=== PATIENT | female | born 1960 ===

== ENCOUNTER 2022-12-01 16:43 | Observation (INO) | payer BC ==
--- OUTSIDE RECORDS SUMMARY | 2022-12-01 16:47 | XMS REPORT | Continuity of Care Document ---
:1960 Author Organization [facility] t Address [address] [place] [address] [place] [id number] Care Team Providers Name Role Phone Sharpless Primary Care Physician Jen Moncada Attending Clinician Unavailable Natalya Mcdowell Attending Clinician Unavailable EZIO JAMES Attending Clinician Unavailable Suleman Cordoba Attending Clinician Unavailable Shefali Lopez Attending Clinician Unavailable Referred, Self Attending Clinician Unavailable Jen Moncada Attending Clinician Enmanuel Garcia Attending Clinician LUCIO AMOR Attending Clinician Unavailable Nithya Jurado Admitting Clinician Unavailable Natalya Mcdowell Admitting Clinician Unavailable Physician, No Primary or Family Admitting Clinician UnavailLUCIO Christianson Admitting Clinician Unavailable Payers Payer Name Policy Type Policy Number Effective Date Expiration Date S ource Problems Condition Condition Condition Status Onset Resolution Last Treating Co mments Source Name Details Category Date Date Treatment Clinician Date RIGHT FOOT RIGHT Diagnosis Active 2019-03-23 [facility] FOOT 7-24 09:09:00 l Active 08:00: Fred 08/31/2018 00 SMR [facility] Abnormal Abnormal Disease Active Overview: Ar thodi stress stress 3-[address] test test 00:00: g of this Hospita 00 note l might be different from the original. 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 00:00: Hospita 00 l Malignant Malignant Problem Resolve 2019-04-20 Memoria tumor of tumor of d 23:30:12 l breast breast [place] (disorder) (disorder) Resolved Problem 04/20/2019 [facility] Allergies, Adverse Reactions, Alerts Allergy Allergy Status Severity Reaction(s) Onset Inactive Treating Comm ents Source Name Type Date Date Clinician No Known DA Active U 2020- [facility]- [facility] [place] No Known DA Active U 2020-0 [facility] All[facility]ie 6 [place] [facility] 00:[facility]: [facility]ope 00 dic Hospita l No Known DA Active U 2020-0 [facility] Allergie 6- [place] 00:[facility]ope 00 dic [facility]ospita l No Known DA Active U 2020-0 [facility] Allergie 6- [place] 00:[facility] Orthope 00 dic Hospita l No Known DA Active U 2018-0 [facility] Allergie 7-17 Clear s 00:00: Hyatt 00 [facility] No Known DA Active U 2018-0 [facility] Allergie 7-17 Clear s 00:00: Hyatt 00 [facility] No Known DA Active U 2018-0 [facility] Allergie 7-16 [place] 00:[facility]ope 00 dic Hospita l No Known DA Active U 2015-02 [facility] Allergie 0-07 [place] 00:00: Orthope 00 dic Hospita l No Known No Known Active Memori a Medicati Medicati l on on Fred Allergie Allergie s s Family History Family Member Diagnosis Comments Start Date Stop Date Source Natural brother Heart disease [facility] Natural father Heart disease [facility] Natural mother Heart disease [facility] sister Diabetes [facility] Social History Social Habit Start Date Stop Date Quantity Comments Source Gender identity [facility] Sexual orientation [facility] History of Social 2018-09-25 2018-09-[address] [facility] [address] function 00:00:00 00:00:00 [facility] Social History 2017-05-31 2017-05-31 [facility] corieann 20:49:15 20:49:15 Alcohol intake 2016-10-23 2016-10-23 [facility] Tobacco use and 2016-09-16 2016-09-[address] [facility] [address] [facility] kes exposure 00:00:00 00:00:00 tobacco non-user [facility] Alcohol Comment 2015-11-04 2015-11-04 2 a week Religious 00:00:00 00:00:00 [facility] Sex Ass[birth year] At [birth year] CHRISTOPHER Hernandez kes 00:00:00 [facility]:00:00 [facility] Smoking Status Start Date Stop Date Source Never smoked tobacco [facility] ospital Medications Ordered Filled Start Stop Current Ordering Indication Dosage Frequency Signature Comments Components Source Medication Medication Date Date Medication? Clinician (SIG) Name Name cholecalcif 2017-02 Yes Take by Met yamilex brown, 1-[address] vitamin D3, 11:05: Hospit a (VITAMIN D3 23 l ORAL) cyanocobala 2017-02 Yes 1000ug Inject Me thodi min 1,000 1-20 1,[address] mcg/mL 11:05: into the Hospita injection 23 shoulder, l thigh, or buttocks once. cholecalcif 2017-02 Yes Take by Met yamilex brown, 1-[address] vitamin D3, 11:05: Hospit a (VITAMIN D3 23 l ORAL) cyanocobala 2017-02 Yes 1000ug Inject Me thodi min 1,000 1-20 1,[address] mcg/mL 11:05: into the Hospita injection 23 shoulder, l thigh, or buttocks once. cholecalcif 2017-02 Yes Take by Met yamilex stephanie, 1-[address] vitamin D3, 11:05: Hospit a (VITAMIN D3 23 l ORAL) cyanocobala 2017-02 Yes 1000ug Inject Me thodi min 1,000 1-20 1,[address] mcg/mL 11:05: into the Hospita injection 23 shoulder, l thigh, or buttocks once. levothyroxi 2017-02 Yes 125ug QD Take 125 M ethodi ne 1-[address] (SYNTHROID, 11:02: mouth Hospi ta LEVOXYL) 28 every l 125 mcg morning. tablet pravastatin 2017-02 Yes 40mg QD Take 40 mg Methodi (PRAVACHOL) 1-[address] 40 MG 11:02: daily. Hospita tablet 28 l levothyroxi 2017-02 Yes 125ug QD Take 125 M ethodi ne 1-[address] (SYNTHROID, 11:02: mouth Hospi ta LEVOXYL) 28 every l 125 mcg morning. tablet pravastatin 2017-02 Yes 40mg QD Take 40 mg Methodi (PRAVACHOL) 1-[address] 40 MG 11:02: daily. Hospita tablet 28 l levothyroxi 2017-02 Yes 125ug QD Take 125 M ethodi ne 1-[address] (SYNTHROID, 11:02: mouth Hospi ta LEVOXYL) 28 every l 125 mcg morning. tablet pravastatin 2017-02 Yes 40mg QD Take 40 mg Methodi (PRAVACHOL) 1-[address] 40 MG 11:02: daily. Hospita tablet 28 l Vitamin D3 Yes 5,000 Memori a 5000 intl 4-23 IntlUnit = l units oral 20:49: 1 cap, PO, H ermann capsule 00 Daily, # 30 cap, 1 Refill(s) pravastatin Yes 40 mg = 1 M emoria 40 mg oral 4-23 tab, PO, l tablet 20:49: Daily, 0 [place] 00 Refill(s) sucralfate Yes 1 gm = 1 Mem oria 1 g oral 4-23 tab, PO, l tablet 20:49: QID-Before Kym nn 00 Meals, 0 Refill(s) levothyroxi Yes 125 Memori a ne 125 mcg 4-23 microgram l (0.125 mg) 20:49: = 1 tab, Her braxton oral tablet 00 PO, Daily, 0 Refill(s) predniSONE Yes 10 mg = 1 Me moria 10 mg oral 4-23 tab, PO, l tablet 20:49: Daily, 0 Fred 00 Refill(s) omeprazole Yes 40 mg = 1 Me moria 40 mg oral 4-23 cap, PO, l delayed 20:49: Daily, 0 Ole n release 00 Refill(s) capsule Ibuprofen Yes 400 mg = 1 Me moria 400 MG Oral 4-23 tab, PO, l Tablet 20:49: Q6H, 0 [place] Refill(s) Vitamin Yes 1 tab, PO, Joseph yves B-100 4-23 Daily, 0 l 20:49: Refill(s) Fred 00 levothyroxi Yes 125 Memori a ne 125 mcg 4-23 microgram l (0.125 mg) 20:49: = 1 tab, Her braxton oral tablet 00 PO, Daily, 0 Refill(s) predniSONE Yes 10 mg = 1 Me moria 10 mg oral 4-23 tab, PO, l tablet 20:49: Daily, 0 [place] Refill(s) omeprazole Yes 40 mg = 1 Me moria 40 mg oral 4-23 cap, PO, l delayed 20:49: Daily, 0 Ole n release 00 Refill(s) capsule Ibuprofen Yes 400 mg = 1 Me moria 400 MG Oral 4-23 tab, PO, l Tablet 20:49: Q6H, 0 [place] 00 Refill(s) Vitamin 0 Yes 1 tab, PO, Joseph yves B-100 4-23 Daily, 0 l 20:49: Refill(s) Vitamin D3 Yes 5,000 Memori a 5000 intl 4-23 IntlUnit = l units oral 20:49: 1 cap, PO, H ermann capsule 00 Daily, # 30 cap, 1 Refill(s) pravastatin Yes 40 mg = 1 M emoria 40 mg oral 4-23 tab, PO, l tablet 20:49: Daily, 0 Fred Refill(s) sucralfate Yes 1 gm = 1 Mem oria 1 g oral 4-23 tab, PO, l tablet 20:49: QID-Before Kym nn 00 Meals, 0 Refill(s) levothyroxi Yes 125ug Take [address] ne 9-14 [facility] (SYNTHROID, 18:33: mouth Medic al LEVOTHROID) 02 Every Center 125 MCG morning on tablet an empty stomach. levothyroxi 2017-0 Yes 125ug Take [address] ne 9-14 [facility] (SYNTHROID, 18:33: mouth Medic al LEVOTHROID) 02 Every Center 125 MCG morning on tablet an empty stomach. levothyroxi 2017-0 Yes 125ug Take [address] ne 9-14 [facility] (SYNTHROID, 18:33: mouth Medic al LEVOTHROID) 02 Every Center 125 MCG morning on tablet an empty stomach. Vital Signs Vital Name Observation Time Observation Value Comments Source Height 2017-05-31 20:41:00 [facility] BMI Calculated 2017-05-31 20:41:00 Ru[facility] Landis Weight 2017-05-31 20:41:00 [facility] Heart Rate 2017-05-31 20:41:00 [facility] Systolic (mm Hg) 2017-05-31 20:41:00 Josephruben Ibarra Diastolic (mm Hg) 2017-05-31 20:41:00 [facility] lynne Ibarra Procedures Procedure Date / Time Performed Performing Clinician [facility] e Measurement of 2017-05-31 18:13:00 Daphnie braxton post-voiding residual urine and/or bladder capacity by ultrasound, non-imaging Mastectomy [facility] Plan of Care Planned Activity Planned Date Details Comments Source Future Scheduled 2022-11-25 [facility] Test 20:24:09 malignant neoplasm of colon (procedure) [code = 102713049] Future Scheduled 2022-11-25 [facility] Test 20:24:09 malignant neoplasm of colon (procedure) [code = 964622121] Future Scheduled 2022-11-25 [facility] Test 20:24:09 malignant neoplasm of colon (procedure) [code = 650859852] Future Scheduled 2022-11-25 COVID-19 VACCINE (#1) [facility] Hospital Test 20:24:09 [code = COVID-19 VACCINE (#1)] Future Scheduled 2022-11-25 [facility] Test 20:24:09 malignant neoplasm of cervix (procedure) [code = 939049671] Future Scheduled 2022-11-25 [facility] Test 20:24:09 malignant neoplasm of colon (procedure) [code = 651330784] Future Scheduled 2022-11-25 Screening for [facility] Test 20:24:09 malignant neoplasm of colon (procedure) [code = 311064881] Future Scheduled 2022-11-25 SHINGLES VACCINES (1 [facility] Test 20:24:09 of 2) [code = SHINGLES VACCINES (1 of 2)] Future Scheduled 2022-11-25 BREAST CANCER [facility] Test 20:24:09 SCREENING [code = BREAST CANCER SCREENING] Future Scheduled 2022-11-25 RSV VACCINES > 60 YR [facility] Test 20:24:09 (1 - 1-dose 60+ series) [code = RSV VACCINES > 60 YR (1 - 1-dose 60+ series)] Future Scheduled 2022-11-25 INFLUENZA VACCINE [facility] Test 20:24:09 (#1) [code = INFLUENZA VACCINE (#1)] Future Scheduled 2022-07-08 COVID-19 VACCINE (#1) [facility] Test 14:54:12 [code = COVID-19 VACCINE (#1)] Future Scheduled 2022-07-08 Screening for [facility] Test 14:54:12 malignant neoplasm of cervix (procedure) [code = 665892551] Future Scheduled 2022-07-08 COLONOSCOPY SCREENING [facility] Test 14:54:12 [code = COLONOSCOPY SCREENING] Future Scheduled 2022-07-08 SHINGLES VACCINES (1 [facility] Test 14:54:12 of 2) [code = SHINGLES VACCINES (1 of 2)] Future Scheduled 2022-07-08 BREAST CANCER [facility] Test 14:54:12 SCREENING [code = BREAST CANCER SCREENING] Future Scheduled 2022-07-08 INFLUENZA VACCINE [facility] Test 14:54:12 [code = INFLUENZA VACCINE] Future Scheduled 2021-10-08 HEPATITIS B VACCINES [facility] Test 00:25:25 (1 of 3 - 3-dose series) [code = HEPATITIS B VACCINES (1 of 3 - 3-dose series)] Future Scheduled 2021-10-08 COVID-19 VACCINE (#1) [facility] Test 00:25:25 [code = COVID-19 VACCINE (#1)] Future Scheduled 2021-10-08 Screening for [facility] Test 00:25:25 malignant neoplasm of cervix (procedure) [code = 478136295] Future Scheduled 2021-10-08 COLONOSCOPY SCREENING [facility] Test 00:25:25 [code = COLONOSCOPY SCREENING] Future Scheduled 2021-10-08 SHINGLES VACCINES (1 [facility] Test 00:25:25 of 2) [code = SHINGLES VACCINES (1 of 2)] Future Scheduled 2021-10-08 BREAST CANCER [facility] Test 00:25:25 SCREENING [code = BREAST CANCER SCREENING] Future Scheduled 2021-10-08 INFLUENZA VACCINE Method [facility] Test 00:25:25 [code = INFLUENZA VACCINE] Encounters Start End Encounter Admission Attending Care Care Encounter Source Date/Time Date/Time Type Type Clinicians Facility Department ID 2019-08-25 Inpatient MAHSA Fukelmo, [facility] 11:37:00 Jen [id number] [place] [facility] 2022-07-07 2022-07-07 Outpatient MAHSA Mcdowell [facility] [id number] [facility] 12:00:00 12:00:00 Natalya 71 [facility] 2021-10-23 2021-10-23 Outpatient JACOB MHSE MHSE [id number] MH 06:30:00 12:25:00 [facility] 2021-06-30 2021-06-30 Outpatient MAHSA Mcdowell [facility] [id number] [facility] 12:00:00 12:00:00 Natalya 48 [facility] 2020-07-30 2020-07-30 Outpatient EL Adalid, [facility] PAIN - [facility] 10:03:00 10:03:00 Suleman [id number] [place] [facility] 2020-07-12 2020-07-12 Outpatient EL Adalid, [facility] PAIN [id number] [facility] 07:03:00 07:03:00 Suleman [id number] [place] [facility] 2020-07-01 2020-07-01 Outpatient Halamicek, [facility] RADI [address]- [facility] 16:45:00 16:45:00 Shefali [address] [place] [facility] 2020-06-19 2020-06-19 Outpatient MAHSA Mcdowell [facility] [id number] [facility] 23:41:59 23:41:59 Natalya 26 [facility] [place] 2019-08-22 2019-08-22 Outpatient Antwan, [facility] [id number] [facility] 18:24:00 18:24:00 Tomiko 30 [facility] 2019-08-15 2019-08-15 Outpatient MAHSA Mcdowell, [facility] [id number] [facility] 12:00:00 12:00:00 Natalya 86 [facility] [place] 2019-06-16 2019-06-16 Outpatient EL Vilma, [facility] [id number] [facility] 12:00:00 12:00:00 Self 72 [facility] [place] 2019-03-20 2019-04-19 OP Therapy nullFlavo SMR Aaron [id number] [facility] 17:00:00 04:59:00 [facility] 00 l [place] 2019-03-20 2019-04-19 OP Therapy nullFlavo SMR Aaron [id number] [facility] 17:00:00 04:59:00 [facility] 00 l [place] 2019-03-20 2019-04-18 Outpatient Antwan, [id number] 11:00:00 23:59:00 Tomiko [id number] 2017-05-31 2017-06-01 [place] [id number] [facility] 20:45:00 04:59:59 r [facility] [place] 2017-05-31 2017-06-01 [place] [id number] [facility] 20:45:00 04:59:59 r [facility] 00 [place] 2017-05-31 2017-05-31 Outpatient Enmanuel Garcia MG [id number] 15:45:00 23:59:59 Denys 00 2017-05-31 2017-05-31 Outpatient MHIE MHIE [id number] [facility] 15:45:00 15:45:00 00 l Fred Results Test Description Test Time Test Comments Results Result [facility] e Comments - XR FLUORO FOR 2020-07-30 SPINE INJ 13:19:[address] [facility] : 1960 Sex: F Patient Name: HANNAH OLIVAREZ Unit No: [id number] EXAMS: CPT CODE: [id number] XR FLUORO FOR SPINE INJ 87263 LUMBAR FACET INJECTION DIAGNOSTIC REFERRAL PHYSICIAN: None PREOPERATIVE DIAGNOSIS: Lumbar spondylosis without myelopathy or radiculopathy POSTOPERATIVE DIAGNOSIS: Lumbar spondylosis without myelopathy or radiculopathy PROCEDURE PERFORMED: Fluoroscopically guided needle localization of the bilateral L4/5 and right L5/S1 facets with arthrograms and diagnostic injection of local anesthetic and steroid. FINDINGS: All 3 joints are arthritic especially so at right L5/S1 Preinjection VAS 8/10. Postinjection VAS 0/10. Steroid response pending follow-up. ESTIMATED BLOOD LOSS: Minimal ANESTHESIA: TIVA COMPLICATIONS: None DETAILS OF PROCEDURE: After obtaining stable vital signs, informed consent and IV access patient was taken to the fluoroscopy suite where the patient was placed in a prone position with all extremities padded and appropriate monitors placed. The patient was sterilely prepped prepped and draped over the lumbosacral spine. Using fluoroscopic visualization, the insertion sites were marked for a paravertebral approach to each joint. Using standard technique, a 22 -gauge needle was inserted into each joint capsule without paresthesias. At all levels, aspiration was negative for clear serous fluid. Isovue-300 contrast 0.2 mL was injected to produce each arthrogram. There were no signs of intravascular or intrathecal uptake. Bupivicaine 0.75% 0.08 mL with Lidocaine 4% 0.25 ml and triamcinolone 26.7 mg was then injected incrementally into each joint. There were no signs of intravascular or intrathecal uptake. The patient's vital signs remained stable. All needles were removed and the patient was taken to the PACU in good condition. Image: Image 1 Image: Image 2 Image: Image 3 Image: Image 4 at 1319 Reported and signed by: SULEMAN CORDOBA MD [facility] NAME: HANNAH OLIVAREZ [address] [facility] PHYS: Suleman Rodriguez [place], [place] [address] : 1960 AGE: 60 SEX: F LOC: WILVER PHONE #: [phone] EXAM DATE: 07/30/2020 STATUS: REG SDC FAX #: [phone] RAD #: D/C DT PAGE 1 Signed Report (CONTINUED) Patient Name: HANNAH OLIVAREZ Unit No: [id number] EXAMS: CPT CODE: [id number] XR FLUORO FOR SPINE INJ 37261 (Continued) CC: Suleman Cordoba MD; Nithya Jurado MD Technologist: ALEXSANDRA KWONG RT(R) Transcribed D/ (1319) [id number] [facility] NAME: HANNAH OLIVAREZ [address] [facility] PHYS: Suleman Rodriguez [place], [place] [address] : 1960 AGE: 60 SEX: F LOC: [facility] PHONE #: [phone] EXAM DATE: 07/30/2020 STATUS: REG [facility] FAX #: [phone] RAD #: D/C DT PAGE 2 Signed Report Patient Name: HANNAH OLIVAREZ Unit No: [id number] EXAMS: CPT CODE: [id number] XR FLUORO FOR SPINE INJ 41751 (Continued) Orig Print D/T: S: 07/30/2020 (1322) [facility] NAME: HANNAH OLIVAREZ [address] [facility] PHYS: Suleman Rodriguez [place], [place] [address] : 1960 AGE: 60 SEX: F LOC: [facility] PHONE #: [phone] EXAM DATE: 07/30/2020 STATUS: REG [facility] FAX #: [phone] RAD #: D/C DT PAGE 3 Signed Report - XR FLUORO FOR 2020-07-12 SPINE INJ 10:22:00 [facility] 1960 Sex: F Patient Name: HANNAH OLIVAREZ Unit No: [id number] EXAMS: CPT CODE: [id number] XR FLUORO FOR SPINE INJ 96521 CERVICAL FACET DIAGNOSTIC INJECTION REFERRAL PHYSICIAN: Dr. Dempsey Preoperative diagnosis: Cervical spondylosis without myelopathy or radiculopathy Postoperative diagnosis: Cervical spondylosis without myelopathy or radiculopathy Procedure performed: Fluoroscopically guided needle localization of the bilateral C3/4 and bilateral C5/6 facets with arthrograms and diagnostic injection of local anesthetic and steroid. Findings:Good flow of dye into all 4 facet joints. The right C3-4 facet was reasonably solid but the other 3 facet joint capsules did leak. Lupx-wh-efcisdui degenerative changes seen at all 4 levels. Preinjection VAS 8/10. Postinjection VAS 5/10 (she was feeling a soreness at the needle entry site. She was unable to tell if her original pain was significantly different however she did notice her range of motion was drastically improved).. Steroid response pending follow-up. Estimated blood loss: Minimal Anesthesia: TIVA Complications: None Details of procedure: After obtaining stable vital signs, informed consent and IV access, with no contraindications to proceeding, the patient was taken to the operating room and placed in a prone position with all extremities padded and appropriate monitors placed. The patient was sterilely prepped and draped over the cervical spine. Using fluoroscopic visualization the insertion sites were marked for a posterior paravertebral approaches and using standard technique, a 22-gauge needle was inserted into each joint capsule without paresthesias. Aspiration was negative. Isovue-300 contrast 0.2 mL was injected to produce each arthrogram. There were no signs of intravascular or intrathecal uptake. Bupivacaine 0.75% 0.06 mL with lidocaine 4% 0.187 mL and dexamethasone 5 mg was then injected incrementally with frequent negative aspirations at each joint. There were no signs of intravascular or intrathecal uptake. The patient's vital signs remained stable. All needles were removed and the patient was taken to the PACU in good condition. Image: Image 1 Image: Image 2 Image: Image 3 Image: Image 4 [facility] NAME: HANNAH OLIVAREZ [address] [facility] PHYS: Suleman Rodriguez [place], [place] [address] : 1960 AGE: 60 SEX: F LOC: LiSAHLEY PHONE #: [phone] EXAM DATE: 07/12/2020 STATUS: REG SD FAX #: [phone] RAD #: D/C DT PAGE 1 Signed Report (CONTINUED) Patient Name: HANNAH OLIVAREZ Unit No: [id number] EXAMS: CPT CODE: [id number] XR FLUORO FOR SPINE INJ 75295 (Continued) at 1022 Reported and signed by: SULEMAN CORDOBA MD CC: Suleman Cordoba MD; Nithya Jurado MD; Sonido Dempsey MD Technologist: ALEXSANDRA KWONG RT(R) Transcribed D/ (1022) [email or web address] [facility] NAME: HANNAH OLIVAREZ [address] [facility] PHYS: Suleman Rodriguez [place], [place] [address] : 1960 AGE: 60 SEX: F LOC: LiASHLEY PHONE #: [phone] EXAM DATE: 07/12/2020 STATUS: REG [facility] FAX #: [phone] RAD #: D/C DT PAGE 2 Signed Report Patient Name: HANNAH OLIVAREZ Unit No: [id number] EXAMS: CPT CODE: [id number] XR FLUORO FOR SPINE INJ 06290 (Continued) Orig Print D/T: S: 07/12/2020 (1025) [facility] NAME: HANNAH OLIVAREZ [address] [facility] PHYS: Suleman Rodriguez [place], [place] [address] : 1960 AGE: 60 SEX: F LOC: [facility] PHONE #: [phone] EXAM DATE: 07/12/2020 STATUS: REG SDC FAX #: [phone] RAD #: D/C DT PAGE 3 Signed Report - MRI T-SPINE W/O 2020-07-02 CONT 08:04:00 [facility] : 1960 Sex: F Patient Name: HANNAH OLIVAREZ Unit No: [id number] EXAMS: CPT CODE: [id number] MRI T-SPINE W/O CONT 96186 DIAGNOSIS: 1. At T1-2 there is no evidence for disc bulge or herniation, bony canal or foraminal stenosis. 2. At T2-3 there is no evidence for disc bulge or herniation, bony canal or foraminal stenosis. 3. At T3-4 there is an old less than 25% superior compression of T4. There is no evidence for disc bulge or herniation, bony canal or foraminal stenosis. 4. At T4-5 there is an old less than 25% central endplate compression of T5. There is no evidence for disc bulge or herniation, bony canal or foraminal stenosis. 5. At T5-6 there is 3 mm central disc protrusion touching the cord. No canal or foraminal narrowing. 6. At T6-7 there is no evidence for disc bulge or herniation, bony canal or foraminal stenosis. 7. At T7-8 there is slight disc bulging with annular fissuring. No canal or foraminal narrowing is seen. 8. At T8-9 there is 2 mm of posterior central disc bulging without canal or foraminal narrowing 9. At T9-10 there is no evidence for disc bulge or herniation, bony canal or foraminal stenosis. Bilateral facet degeneration is present. 10. At T10-11 there is 25-50% superior endplate compression of T11 which appears old. Slight bony retropulsion and disc bulging is noted. There is mild narrowing of the central canal without cord impingement. Facet degeneration is present. No foraminal narrowing is seen. 11. At T11-12 there is no evidence for disc bulge or herniation. There is mild narrowing of the canal with facet degeneration. No foraminal narrowing is seen. 12. At T12-L1 there is no evidence for disc bulge or herniation. There is slight narrowing of the central canal due to facet and ligamentum flavum hypertrophic and degenerative change without foraminal narrowing COMMENT: COMPARISON: No prior exams available. Scans were performed in the sagittal and axial planes utilizing T1, T2 and inversion recovery images. Endplate and disc degeneration is seen from T4 to T6 and T10-11. The cord appears normal in size and signal conus is in the expected location. at 0804 Reported and signed by: Morgan Love MD CC: Nithya Jurado MD; Sonido Dempsey MD Technologist: ANA LUISA SOLORZANO MRI Transcribed D/ (0804) [facility]rey [facility] NAME: HANNAH OLIVAREZ [address] [facility] PHYS: Sonido Walters MD : 1960 AGE: 60 SEX: F [place], [place] [address] LOC: Y.MRI PHONE #: [phone] EXAM DATE: 07/01/2020 STATUS: DEP CLI FAX #: [phone] RAD #: D/C DT PAGE 1 Signed Report Patient Name: HANNAH OLIVAREZ Unit No: [id number] EXAMS: CPT CODE: [id number] MRI T-SPINE W/O CONT 40862 (Continued) Orig Print D/T: S: 07/02/2020 (0807) [facility] NAME: HANNAH OLIVAREZ [address] [facility] PHYS: Sonido Walters MD : 1960 AGE: 60 SEX: F [place], [place] [address] LOC: Y.MRI PHONE #: [phone] EXAM DATE: 07/01/2020 STATUS: DEP CLI FAX #: [phone] RAD #: D/C DT PAGE 2 Signed Report - XR T-SPINE 2 2020-07-02 VIEWS 07:17:00 [facility] : 1960 Sex: F Patient Name: HANNAH OLIVARZE Unit No: [id number] EXAMS: CPT CODE: [id number] XR T-SPINE 2 VIEWS 83787 Thoracic spine 2 views COMMENT: Vertebral body heights are maintained. Diffuse interspace narrowing is seen from T2 to T12. There is a scoliosis convex right. at 0717 Reported and signed by: Morgan Love MD CC: Nithya Jurado MD; Sonido Dempsey MD Technologist: SIXTO TORO RT(R) Transcribed D/ (0717) MadhavL [facility] NAME: HANNAH OLIVAREZ [address] [facility] PHYS: Sonido Walters MD : 1960 AGE: 60 SEX: F [place], [place] [address] LOC: Y.MRI PHONE #: [phone] EXAM DATE: 07/01/2020 STATUS: DEP CLI FAX #: [phone] RAD #: D/C DT PAGE 1 Signed Report Patient Name: HANNAH OLIVAREZ Unit No: [id number] EXAMS: CPT CODE: [id number] XR T-SPINE 2 VIEWS 38087 (Continued) Orig Print D/T: S: 07/02/2020 (0720) [facility] NAME: HANNAH OLIVAREZ [address] [facility] PHYS: Sonido Walters MD : 1960 AGE: 60 SEX: F [place] [address] LOC: Y.MRI PHONE #: [phone] EXAM DATE: 07/01/2020 STATUS: DEP CLI FAX #: [phone] RAD #: D/C DT PAGE 2 Signed Report Novel Coronavirus 2019 Inhouse 2019-08-23 08:50:00 Test Item Value Reference Range Interpretation Comme nts Novel Coronavirus 2019 Inhouse (test code = COVNONPUI) Negative Negative Novel Coronavirus 2019 [id number] 08:50:00 Test Item Value Reference Range Interpretation Comments Novel Coronavirus 2019 Inhouse (test Negative Negative code = COVNONPUI) URINE AND [id number] 20:49:00 Test Item Value Reference Range Interpretation Comments POC UA SG (test code = POC UA SG) 1.025 1 [facility] AND [id number] 20:49:00 Test Item Value Reference Range Interpretation Comments POC UA pH (test code = POC UA pH) 6.0 1 5.0-8.0 [facility] [id number] 20:49:00 Test Item Value Reference Range Interpretation Comments POC UA Prot (test code = POC Negative mg/dL UA Prot) [facility] [id number] 20:49:00 Test Item Value Reference Range Interpretation Comments POC UA Glu (test code = POC UA Negative mg/dL Glu) [facility] [id number] 20:49:00 Test Item Value Reference Range Interpretation Comments POC UA Bld (test code Trace *NA*(05/31/17 3:49 = POC UA Bld) PM) [facility] [id number] 20:49:00 Test Item Value Reference Range Interpretation Comments POC UA Uro (test code = POC UA Uro) 0.2 0.1-1.0 [facility] [id number] 20:49:00 Test Item Value Reference Range Interpretation Comments POC UA Nit (test code Negative *NA*(05/31/17 = POC UA Nit) 3:49 PM) [facility] [id number] 20:49:00 Test Item Value Reference Range Interpretation Comments POC UA Ket (test code = POC UA Negative mg/dL Ket) [facility] [id number] 20:49:00 Test Item Value Reference Range Interpretation Comments POC UA Bili (test Negative *NA*(05/31/17 code = POC UA Bili) 3:49 PM) [facility] [id number] 20:49:00 Test Item Value Reference Range Interpretation Comments POC UA SG (test code = POC UA SG) 1.025 1 [facility] [id number] 20:49:00 Test Item Value Reference Range Interpretation Comments POC UA pH (test code = POC UA pH) 6.0 1 5.0-8.0 [facility] [id number] 20:49:00 Test Item Value Reference Range Interpretation Comments POC UA Prot (test code = POC Negative mg/dL UA Prot) [facility] [id number] 20:49:00 Test Item Value Reference Range Interpretation Comments POC UA Glu (test code = POC UA Negative mg/dL Glu) [facility] [id number] 20:49:00 Test Item Value Reference Range Interpretation Comments POC UA Bld (test code Trace *NA*(05/31/17 3:49 = POC UA Bld) PM) [facility] [id number] 20:49:00 Test Item Value Reference Range Interpretation Comments POC UA Uro (test code = POC UA Uro) 0.2 0.1-1.0 [facility] [id number] 20:49:00 Test Item Value Reference Range Interpretation Comments POC UA Nit (test code Negative *NA*(05/31/17 = POC UA Nit) 3:49 PM) [facility] [id number] 20:49:00 Test Item Value Reference Range Interpretation Comments POC UA Ket (test code = POC UA Negative mg/dL Ket) [facility] [id number] 20:49:00 Test Item Value Reference Range Interpretation Comments POC UA Bili (test Negative *NA*(05/31/17 code = POC UA Bili) 3:49 PM) [facility] [id number] 20:49:00 Test Item Value Reference Range Interpretation Comments POC UA LeukEst (test Negative *NA*(05/31/17 code = POC UA LeukEst) 3:49 PM) [facility] [id number] 20:49:00 Test Item Value Reference Range Interpretation Comments POC UA Color (test Yellow *NA*(05/31/17 code = POC UA Color) 3:49 PM) [facility] [id number] 20:49:00 Test Item Value Reference Range Interpretation Comments POC UA Turbidity (test Clear *NA*(05/31/17 code = POC UA Turbidity) 3:49 PM) [facility] [id number] 20:49:00 Test Item Value Reference Range Interpretation Comments POC UA LeukEst (test Negative *NA*(05/31/17 code = POC UA LeukEst) 3:49 PM) [facility] [id number] 20:49:00 Test Item Value Reference Range Interpretation Comments POC UA Color (test Yellow *NA*(05/31/17 code = POC UA Color) 3:49 PM) [facility] [id number] 20:49:00 Test Item Value Reference Range Interpretation Comments POC UA Turbidity (test Clear *NA*(05/31/17 code = POC UA Turbidity) 3:49 PM) [facility] [id number] 11:54:00Surgical Pathology Report Case: [id number] Authorizing Provider: Lucio Amor MD Collected: 10/22/2016 1333 Ordering Location: [facility] Received: 10/22/2016 1538 SERVICES Pathologist: Dario Rashid MD Specimen: Breast, Left, LEFT BREAST CAPSULE AND STRATTICE A. BREAST, LEFT CAPSULE, EXCISION: - DENSE FIBROCONNECTIVE TISSUE WITH SCARRING AND REACTIVE CHANGES - SYNOVIAL METAPLASIA Signing Pathologist Direct Phone Line: [phone] signed by Dario Rashid MD on 10/27/2016 at 11:54 [id number] absence of left breast. History of left breast cancer, breast implant capsular contracture, lipodystrohyLeft breast capsule and stratticeThe specimen is received in a formalin-filled container and labeled with the patient's information and labeled "left breast capsule and strattice" and consists of a small segment of fibrofatty tissue measuring 3.5x 0.4 x 0.3 cm and patel-pink membranous tissue measuring 8.5 x 4.5 x 0.2 cm. No firm or suspicious areas are seen. Protective Signal Installer Helper sections are submitted A1. CG/pl Performed.[facility], Department of Pathology, [address] [place] [address], NIEU-HEMOGLOBIN [id number] 12:08:00 Test Item Value Reference Range Interpretation Comments POC-HEMOGLOBIN METER 12.0 g/dL 12.0-15.0 TESTED AT [place] [address] ([facility]) (test code = [place] [address]) [address] SCREEN, [id number] 17:28:00 Test Item Value Reference Range Interpretation Comments TEST URINE (BEAKER) (test Negative code = 583) [id number] 17:16:00 Test Item Value Reference Range Interpretation Comments HEMOGLOBIN (BEAKER) (test code = 12.5 GM/DL 11.2-15.7 410)
[2022-12-01 17:15] LABS: Protime INR 1.05
[2022-12-01 17:15] LABS: Specific Gravity 1.019 (1.005-1.030); Urine Bilirubin NEGATIVE (Negative); Urine Blood Negative (Negative); Urine Clarity Clear (Clear); Urine Color Light-Yellow (Yellow); Urine Glucose NEGATIVE (Negative); Urine Protein NEGATIVE (Negative); Urine Urobilinogen Normal (Normal); Urine pH 7.5 (5.0-7.0)
[2022-12-01 17:16] LABS: Absolute Lymphocytes (CBC) 2.1 K/uL (0.7-4.9); Hematocrit 37.5 % (36.0-45.0); Lymphocytes % 27.3 % (15.3-44.8); MCV 86.4 fL (80-100); MPV 7.8 fL (7.6-11.3); Platelets 302 thou/uL (152-406); RBC Red Blood Cell Count 4.34 M/uL (3.86-4.86)
[2022-12-01] MEDS ORDERED: ASPIRIN 81 MG CHEWABLE TABLET ONE (17:23)
[2022-12-01] MEDS ORDERED: METOPROLOL TAR 50 MG TAB ONE (17:23)
[2022-12-01] MEDS ORDERED: FAMOTIDINE 20 MG/2 ML VIAL IV ONE (17:23)
--- NOTE | 2022-12-01 17:29 | ER ---
Nurse's Notes [facility] Name: Kiki Eldridge Age: 62 yrs Sex: Female : 1960 Arrival Date: 12/01/2022 Time: 16:43 Bed 2 Private MD: Diagnosis: Chest pain, unspecified;Essential (primary) hypertension;Angina pectoris, unspecified Presentation: 12/01 16:52 Chief complaint: Patient states: left arm numbness and tingling onset at 1430. Pt cm10 states she had chest pain to the center of her chest onset at 1430. Pt states that last night she was having dizziness. Coronavirus screen: Vaccine status: Patient reports receiving the 2nd dose of the covid vaccine. Client denies travel out of the [place] in the last 14 days. Ebola Screen: Patient denies travel to an Ebola-affected area in the 21 days before illness onset. No symptoms or risks identified at this time. Initial Sepsis Screen: Does the patient meet any 2 criteria? No. Patient's initial sepsis screen is negative. Does the patient have a suspected source of infection? No. Patient's initial sepsis screen is negative. Risk Assessment: Do you want to hurt yourself or someone else? Patient reports no desire to harm self or others. Onset of symptoms was December 01, 2022. 16:52 Method Of Arrival: Ambulatory 10 16:52 Acuity: YURIY 2 cm10 Triage Assessment: 16:56 General: Appears in no apparent distress. comfortable, Behavior is calm, cooperative. cm10 Historical: - Allergies: 16:55 No Known Allergies; cm10 - PMHx: 16:55 Breast Cancer; Hypercholesterolemia; Osteoporosis; Hypothyroidism; cm10 - Immunization history:: Adult Immunizations unknown. - Social history:: Smoking status: Patient denies any tobacco usage or history of. Screenin:00 [facility] ED Fall Risk Assessment (Adult) History of falling in the last 3 months, rs5 including since admission No falls in past 3 months (0 pts) Confusion or Disorientation No (0 pts) Intoxicated or Sedated No (0 pts) Impaired Gait No (0 pts) Mobility Assist Device Used No (0 pt) Altered Elimination No (0 pt) Score/Fall Risk Level 0 - 2 = Low Risk Oriented to surroundings, Maintained a safe environment. 17:00 Abuse screen: Denies threats or abuse. Nutritional screening: No deficits noted. rs5 Tuberculosis screening: No symptoms or risk factors identified. Assessment: 17:00 General: Appears in no apparent distress. comfortable, Behavior is calm, cooperative. rs5 17:00 Pain: Complains of pain in chest Pain does not radiate. Pain currently is 1 out of 10 rs5 on a pain scale. Quality of pain is described as heavy, Pain began 3 hours ago. Is continuous. Neuro: Level of Consciousness is awake, alert, obeys commands, Oriented to person, place, time, situation, Reports dizziness, since last night headache frontal area, Pt reports headache, pain is currently 2/10, achey. Cardiovascular: Heart tones S1 S2 present Rhythm is regular. Respiratory: Airway is patent Respiratory effort is even, unlabored, Respiratory pattern is regular, symmetrical, Breath sounds are clear bilaterally. GI: Abdomen is round non-distended, Bowel sounds present X 4 quads. Abd is soft and non tender X 4 quads. : No signs and/or symptoms were reported regarding the genitourinary system. EENT: No signs and/or symptoms were reported regarding the EENT system. Derm: Skin is intact, Skin is pink, warm \T\ dry. Musculoskeletal: Range of motion: intact in all extremities. 18:05 Reassessment: No changes from previously documented assessment. rs5 18:37 Reassessment: Patient and/or family updated on plan of care and expected duration. Pain rs5 level reassessed. Patient is alert, oriented x 3, equal unlabored respirations, skin warm/dry/pink. 20:11 General: Appears in no apparent distress. comfortable, Behavior is calm, cooperative, nw1 appropriate for age. Neuro: Level of Consciousness is awake, alert, obeys commands, Oriented to person, place, time, situation, Appropriate for age Reports Denies dizziness, Pt report dizziness when closing her eyes and laying her head back. She reports the room spinning. Otherwise pt denies dizziness. . Cardiovascular: Heart tones present Rhythm is regular. Respiratory: Airway is patent Respiratory effort is even, unlabored, Respiratory pattern is regular, symmetrical, Breath sounds are clear bilaterally. GI: Abdomen is flat, non-distended, Bowel sounds present X 4 quads. Abd is soft and non tender X 4 quads. : No signs and/or symptoms were reported regarding the genitourinary system. Denies burning with urination, urinary frequency. Derm: Skin is intact, Skin is pink, warm \T\ dry. Musculoskeletal: Range of motion: intact in all extremities. 21:18 General: Appears in no apparent distress. comfortable, attempted to call report to la4 nurse who is currently unavailable. Will attempt report at a later time. Pain: Denies pain. Neuro: Tom Agitation-Sedation Scale (RASS): 0 - Alert and Calm Level of Consciousness is awake, alert, obeys commands, Oriented to person, place, time, situation, Appropriate for age. 22:35 Reassessment: Report called and was told that nurse already received report. Pt to go nw1 upstairs. Vital Signs: 16:52 BP 165 / 99; Pulse 78; Resp 16; Temp 98.2(TE); Pulse Ox 100% ; Weight 78.47 kg (R); cm10 Height 5 ft. 4 in. ; Pain 2/10; 17:35 BP 156 / 98; Pulse 74; Resp 17; Pulse Ox 99% on R/A; rs5 18:38 BP 124 / 67; Pulse 60; Resp 17; Pulse Ox 99% on R/A; rs5 20:16 BP 100 / 70; Pulse 56; Pulse Ox 97% on R/A; nw1 21:21 BP 111 / 55; Pulse 54; Resp 18; Pulse Ox 96% on R/A; Pain 0/10; la4 16:52 Body Mass Index 29.70 (78.47 kg, 162.56 cm) cm10 16:52 Pain Scale: Adult cm10 21:21 Pain Scale: Adult la4 [place] Coma Score: 20:16 Eye Response: spontaneous(4). Motor Response: obeys commands(6). Verbal Response: nw1 oriented(5). Total: 15. ED Course: 16:46 Patient arrived in ED. kj1 16:51 Raymundo Nielsne MD is Attending Physician. marlen 16:55 Triage completed. cm10 16:56 Arm band placed on Patient placed in an exam room. EKG completed in triage. Results cm10 shown to MD. 16:56 EKG done, by ED staff, reviewed by Raymundo Nielsen MD. cm10 17:00 Patient has correct armband on for positive identification. Bed in low position. Call rs5 light in reach. Side rails up X2. Client placed on continuous cardiac and pulse oximetry monitoring. NIBP monitoring applied. panel monitor on. Pulse ox on. NIBP on. 17:00 Inserted saline lock: 20 gauge in right antecubital area, using aseptic technique. mb9 17:01 Basic Metabolic Panel Sent. mb9 17:01 CBC with Diff Sent. mb9 17:01 LFT's Sent. mb9 17:01 Magnesium Sent. mb9 17:01 NT PRO-BNP Sent. mb9 17:01 PT-INR Sent. mb9 17:01 Troponin HS Sent. mb9 17:07 Kirt Crawley, RN is Primary Nurse. rs5 17:28 Rosales Valente MD is Hospitalizing Provider. marlen 17:30 XRAY Chest (1 view) In Process Unspecified. EDMS 17:35 CT Head Brain wo Cont In Process Unspecified. EDMS 18:39 No provider procedures requiring assistance completed. Patient maintains SpO2 rs5 saturation greater than 95% on room air. 20:11 Primary Nurse role handed off by Kirt Crawley, LEAH as6 20:16 Provided Education on: POC discussed. . nw1 20:16 IV is patent, is intact, Flushed right antecubital saline lock. Patient maintains SpO2 nw1 saturation greater than 95% on room air. 21:18 Lashawn Mcleod RN is Primary Nurse. la4 21:22 Patient admitted, IV remains in place. la4 Administered Medications: 17:16 Drug: Aspirin PO Chewable Tablet 162 mg PO once Route: PO; rs5 17:45 Follow up: Response: No adverse reaction rs5 17:16 Drug: Metoprolol IVP 5 mg IVP once; Hold for SBP <100 or HR <60. Route: IVP; Site: rs5 right antecubital; 17:45 Follow up: Response: No adverse reaction rs5 17:16 Drug: Metoprolol PO 50 mg PO once Route: PO; rs5 17:45 Follow up: Response: No adverse reaction rs5 17:16 Drug: Famotidine IVP 20 mg IVP once; dilute with 10 mL 0.9% NaCl; give over 2 minutes rs5 Route: IVP; Site: right antecubital; 17:45 Follow up: Response: No adverse reaction rs5 18:36 Drug: Enoxaparin Sub-Q 1 mg/kg Sub-Q once; if ct head neg {Note: CT scan of the head rs5 was clear.} Route: Sub-Q; Site: left lower abdomen; Medication: 18:40 VIS not applicable for this client. rs5 Outcome: 17:29 Decision to Hospitalize by Provider. marlen 21:22 Admitted to Tele accompanied by tech, via stretcher, with oxygen, Report called to yo Giraldo RN 21:22 Condition: stable 21:22 Instructed on the need for admit, 22:35 Patient left the ED. nw1 23:10 Admitted to Tele Report called to Kristal ram Signatures: Dispatcher [employer] EDRaymundo Thomas MD MD cha Jackson, Kandis kj1 Nacho Cornejo, RN RN as6 Shefali Fowler, RN RN mb9 Kirt Crawley, RN RN rs5 Maria Fernanda Null RN RN cm10 Lashawn Mcleod RN RN la4 Maryann Syed RN RN nw1
--- NOTE | 2022-12-01 17:30 | EDPHYS ---
Physician Documentation [facility] Name: Kiki Eldridge Age: 62 yrs Sex: Female : 1960 Arrival Date: 12/01/2022 Time: 16:43 Bed 2 Private MD: ED Physician Raymundo Nielsen HPI: 12/01 17:11 This 62 yrs old Female presents to ER via Ambulatory with complaints of Chest marlen Pain. 17:11 The patient or guardian reports chest pain that is located primarily in the substernal marlen area. Onset: today, yesterday. The pain radiates to the left arm. Associated signs and symptoms: The patient has no apparent associated signs or symptoms. The chest pain is described as a heaviness, causing indigestion. Duration: The patient or guardian reports multiple episodes, with no pattern. Modifying factors: The symptoms are alleviated by nothing. the symptoms are aggravated by nothing. Severity of pain: At its worst the pain was moderate in the emergency department the pain is unchanged. The patient has not experienced similar symptoms in the past. Historical: - Allergies: 16:55 No Known Allergies; cm10 - PMHx: 16:55 Breast Cancer; Hypercholesterolemia; Osteoporosis; Hypothyroidism; cm10 - Immunization history:: Adult Immunizations unknown. - Social history:: Smoking status: Patient denies any tobacco usage or history of. ROS: 17:13 Constitutional: Negative for fever, chills, and weight loss, Eyes: Negative for injury, marlen pain, redness, and discharge, ENT: Negative for injury, pain, and discharge, Neck: Negative for injury, pain, and swelling, Respiratory: Negative for shortness of breath, cough, wheezing, and pleuritic chest pain, Abdomen/GI: Negative for abdominal pain, nausea, vomiting, diarrhea, and constipation, Back: Negative for injury and pain, : Negative for injury, bleeding, discharge, and swelling, MS/Extremity: Negative for injury and deformity, Skin: Negative for injury, rash, and discoloration, Neuro: Negative for headache, weakness, numbness, tingling, and seizure, Psych: Negative for depression, anxiety, suicide ideation, homicidal ideation, and hallucinations, Allergy/Immunology: Negative for hives, rash, and allergies, Endocrine: Negative for neck swelling, polydipsia, polyuria, polyphagia, and marked weight changes, Hematologic/Lymphatic: Negative for swollen nodes, abnormal bleeding, and unusual bruising, 17:13 Cardiovascular: Positive for chest pain, of the chest, Exam: 17:13 Constitutional: This is a well developed, well nourished patient who is awake, alert, marlen and in no acute distress. Head/Face: Normocephalic, atraumatic. Eyes: Pupils equal round and reactive to light, extra-ocular motions intact. Lids and lashes normal. Conjunctiva and sclera are non-icteric and not injected. Cornea within normal limits. Periorbital areas with no swelling, redness, or edema. ENT: Nares patent. No nasal discharge, no septal abnormalities noted. Tympanic membranes are normal and external auditory canals are clear. Oropharynx with no redness, swelling, or masses, exudates, or evidence of obstruction, uvula midline. Mucous membranes moist. Neck: Trachea midline, no thyromegaly or masses palpated, and no cervical lymphadenopathy. Supple, full range of motion without nuchal rigidity, or vertebral point tenderness. No Meningismus. Chest/axilla: Normal chest wall appearance and motion. Nontender with no deformity. No lesions are appreciated. Cardiovascular: Regular rate and rhythm with a normal S1 and S2. No gallops, murmurs, or rubs. Normal PMI, no JVD. No pulse deficits. Respiratory: Lungs have equal breath sounds bilaterally, clear to auscultation and percussion. No rales, rhonchi or wheezes noted. No increased work of breathing, no retractions or nasal flaring. Abdomen/GI: Soft, non-tender, with normal bowel sounds. No distension or tympany. No guarding or rebound. No evidence of tenderness throughout. Back: No spinal tenderness. No costovertebral tenderness. Full range of motion. Female : Normal external genitalia. Skin: Warm, dry with normal turgor. Normal color with no rashes, no lesions, and no evidence of cellulitis. MS/ Extremity: Pulses equal, no cyanosis. Neurovascular intact. Full, normal range of motion. Neuro: Awake and alert, GCS 15, oriented to person, place, time, and situation. Cranial nerves II-XII grossly intact. Motor strength 5/5 in all extremities. Sensory grossly intact. Cerebellar exam normal. Normal gait. Psych: Awake, alert, with orientation to person, place and time. Behavior, mood, and affect are within normal limits. 17:13 ECG was reviewed by the Attending Physician. Vital Signs: 16:52 BP 165 / 99; Pulse 78; Resp 16; Temp 98.2(TE); Pulse Ox 100% ; Weight 78.47 kg (R); cm10 Height 5 ft. 4 in. ; Pain 2/10; 17:35 BP 156 / 98; Pulse 74; Resp 17; Pulse Ox 99% on R/A; rs5 18:38 BP 124 / 67; Pulse 60; Resp 17; Pulse Ox 99% on R/A; rs5 20:16 BP 100 / 70; Pulse 56; Pulse Ox 97% on R/A; nw1 21:21 BP 111 / 55; Pulse 54; Resp 18; Pulse Ox 96% on R/A; Pain 0/10; la4 16:52 Body Mass Index 29.70 (78.47 kg, 162.56 cm) cm10 16:52 Pain Scale: Adult cm10 21:21 Pain Scale: Adult la4 Paco Coma Score: 20:16 Eye Response: spontaneous(4). Motor Response: obeys commands(6). Verbal Response: nw1 oriented(5). Total: 15. MDM: 16:51 Patient medically screened. marlen 17:22 Differential diagnosis: abnormal EKG, acute myocardial infarction, acute pericarditis, marlen anxiety, chest wall pain, Cholelithiasis herpes zoster, hiatal hernia, myocarditis, pancreatitis, peptic ulcer disease, pericarditis, pleurisy, pulmonary embolus, stable angina, thoracic aortic disection, unstable angina. HEART Score: History: Moderately Suspicious (1), ECG: Non specific repolarization disturbance / LBTB / PM (1), Age: > 45 and < 65 years (1), Risk Factors: > or = 3 Risk factors for atherosclerotic disease (2), [Hypercholesterolemia] [Hypertension] [+ Family HX] [Obesity] Troponin: < or = 1 x Normal Limit (0), Total Score = 5. The patient was given aspirin in the Emergency Department. MARCELLE Risk Score: 1 - Three or more CAD risk factors, 1- Known CAD, TOTAL SCORE = 2. Data reviewed: vital signs, nurses notes, lab test result(s), EKG, radiologic studies, plain films. Consideration of Admission/Observation Patient was admitted/placed on observation. Escalation of care including admission/observation considered. I considered the following discharge prescriptions or medication management in the emergency department Medications were administered in the Emergency Department. See MAR. Independent interpretation of the following test(s) in the Emergency Department EKG: See my EKG interpretation above. Test considered but Not performed: CT: ct chest ro pe. Care significantly affected by the following chronic conditions: Hypertension, Obesity. Counseling: I had a detailed discussion with the patient and/or guardian regarding the historical points, exam findings, and any diagnostic results supporting the discharge/admit diagnosis, the presence of at least one elevated blood pressure reading (>120/80) during this emergency department visit, radiology results, the need for further work-up and treatment in the hospital. 12/01 16:53 Order name: Basic Metabolic Panel; Complete Time: 17:55 [facility] 12/01 16:53 Order name: CBC with Diff; Complete Time: 17:34 [facility] 12/01 16:53 Order name: LFT's; Complete Time: 17:55 [facility] 12/01 16:53 Order name: Magnesium; Complete Time: 17:55 [facility] 12/01 16:53 Order name: NT PRO-BNP; Complete Time: 17:55 12/01 16:53 Order name: PT-INR; Complete Time: 17:34 [facility]len 12/01 16:53 Order name: Troponin HS; Complete Time: 17:55 [facility] 12/01 16:53 Order name: Lipase; Complete Time: 17:55 [facility] 12/01 16:53 Order name: Urinalysis w/ reflexes [facility] 12/01 17:03 Order name: Lipid Profile [facility] 12/01 20:36 Order name: Urinalysis w/ reflexes [facility] 12/01 20:36 Order name: Troponin High Sensitivity [facility] 12/01 20:36 Order name: Troponin High Sensitivity [facility] 12/01 20:36 Order name: Troponin High Sensitivity [facility] 12/01 20:36 Order name: Troponin High Sensitivity [facility] 12/01 16:53 Order name: XRAY Chest (1 view) [facility] 12/01 17:03 Order name: CT Head Brain wo Cont [facility] 12/01 16:53 Order name: EKG; Complete Time: 16:54 12/01 16:53 Order name: Cardiac monitoring; Complete Time: 17:33 [facility] 12/01 16:53 Order name: EKG - Nurse/Tech; Complete Time: 17: [facility] 12/01 16:53 Order name: IV Saline Lock; Complete Time: 17: [facility] 12/01 16:53 Order name: Labs collected and sent; Complete Time: 17: [facility] 12/01 16:53 Order name: O2 Per Protocol; Complete Time: 17:33 [facility] 12/01 16:53 Order name: O2 Sat Monitoring; Complete Time: 17:33 [facility] EC:13 Rate is 76 beats/min. Rhythm is regular. QRS Welches is Normal. IL interval is normal. QRS marlen interval is normal. QT interval is normal. No Q waves. T waves are Normal. No ST changes noted. Clinical impression: NSR w/ Non-specific ST/T Changes. Interpreted by me. Reviewed by me. Administered Medications: 17:16 Drug: Aspirin PO Chewable Tablet 162 mg PO once Route: PO; rs5 17:45 Follow up: Response: No adverse reaction rs5 17:16 Drug: Metoprolol IVP 5 mg IVP once; Hold for SBP <100 or HR <60. Route: IVP; Site: rs5 right antecubital; 17:45 Follow up: Response: No adverse reaction rs5 17:16 Drug: Metoprolol PO 50 mg PO once Route: PO; rs5 17:45 Follow up: Response: No adverse reaction rs5 17:16 Drug: Famotidine IVP 20 mg IVP once; dilute with 10 mL 0.9% NaCl; give over 2 minutes rs5 Route: IVP; Site: right antecubital; 17:45 Follow up: Response: No adverse reaction rs5 18:36 Drug: Enoxaparin Sub-Q 1 mg/kg Sub-Q once; if ct head neg {Note: CT scan of the head rs5 was clear.} Route: Sub-Q; Site: left lower abdomen; Disposition Summary: 12/01/22 17:29 Hospitalization Ordered Notes: Hospitalization Status: Observation marlen Provider: Rosales Valente cha Location: Telemetry/MedSurg (observation) marlen Condition: Fair marlen Problem: new marlen Symptoms: have improved marlen Bed/Room Type: Standard marlen Room Assignment: 409(12/01/22 20:37) mw Diagnosis - Chest pain, unspecified marlen - Essential (primary) hypertension marlen - Angina pectoris, unspecified marlen Forms: - Medication Reconciliation Form marlen - SBAR form marlen - Leadership Thank You Letter marlen Signatures: Dispatcher [employer] Stephanie Chin RN RN Raymundo Gill MD MD cha Attema, Lee, PRESCHOOL DIRECTOR-C PRESCHOOL DIRECTOR-Cla1 Kirt Crawley RN RN rs5 Maria Fernanda Null RN RN cm10 Corrections: (The following items were deleted from the chart) 20:37 17:29 marlen mackay
[2022-12-01] MEDS ORDERED: METOPROLOL TARTRATE 5 MG/5 ML INJ IV ONE (17:31)
[2022-12-01 17:49] LABS: Albumin 3.9 g/dL (3.4-5.0); Bilirubin Direct 0.1 mg/dL (0-0.2); Bilirubin Indirect, Calculated 0.2 mg/dL (0.2-0.8); Bilirubin Total 0.3 mg/dL (0.2-1.0); Magnesium 2.1 mg/dL (1.6-2.4); Potassium 3.5 mEq/L (3.5-5.1); Protein, Total 7.9 g/dL (6.4-8.2); Troponin High Sensitivity 4.9 pg/mL (<58.9)
--- NOTE | 2022-12-01 18:03 | RAD REPORT ---
EXAM DESCRIPTION: Phillipt Single View12/01/2022 5:28 pm CLINICAL HISTORY: CHEST PAIN COMPARISON: CHEST PA AND LAT 2 VIEW dated 09/12/2007; CHEST PA AND LAT 2 VIEW dated 08/16/2002 TECHNIQUE: Portable AP view of the chest. FINDINGS: The lungs are clear. No pneumothorax or effusion. The cardiomediastinal contours are unre markable. IMPRESSION: No acute cardiopulmonary process.
--- NOTE | 2022-12-01 18:18 | RAD REPORT ---
EXAM DESCRIPTION: CT - Head Brain Wo Cont - 12/01/2022 5:35 pm CLINICAL HISTORY: HEADACHE COMPARISON: CT HEAD BRAIN WWO CONTRAST dated 03/11/2007 TECHNIQUE: Noncontrast head CT images were obtained without IV contrast. Multiplanar reformats were generated and reviewed. All CT scans are performed using dose optimization technique as appropriate and may include automated exposure control or mA/KV adjustment according to patient size. FINDINGS: No intracranial hemorrhage, mass, or edema. Midline structures are unremarkable. Normal ventricular caliber for age. Howard-white matter differentiation is preserved, without evidence of acute infarct. No abnormal extra- axial fluid collections. Mastoid air cells and visualized portions of the paranasal sinuses are clear. No acute bony findings. IMPRESSION: No evidence of an acute intracranial process.
[2022-12-01] MEDS ORDERED: ENOXAPARIN 80 MG/0.8 ML SQ ONE (18:45)
[2022-12-01] MEDS ORDERED: ACETAMINOPHEN 325 MG TABLET PO PRN (20:20)
[2022-12-01] MEDS ORDERED: ONDANSETRON 4 MG/2 ML VIAL IV PRN (20:20)
--- NOTE | 2022-12-01 20:54 | P.HP ---
Certification for Inpatient Patient admitted to: Observation With expected LOS: <2 Midnights Patient will require the following post-hospital care: None Practitioner: I am a practitioner with admitting privileges, knowledge of patient current condition, hospital course, and medical plan of care. Services: Services provided to patient in accordance with Admission requirements found in Title 42 Section 412.3 of the Code of Federal Regulations Patient History Date of Service: 12/02/22 Reason for admission: Chest pain History of Present Illness: 62-year-old female patient with a medical history significant for hypertension, hyperlipidemia, strong family history of coronary artery disease in both parents and sibling who was evaluated for episode of chest pain radiating down the left arm that started on the day of admission. 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 Dizziness persisted and she began to have some mild chest discomfort in the epigastric/retrosternal area. Subsequently she felt it radiating down the left arm with some numbness and uneasy feeling. No issues with nausea, vomiting, headache. No falls. No syncope. Because her symptoms persisted she decided to come to the emergency room for evaluation. In the ED after clinical review patient was deemed to be in need of ACS rule out. She did have left heart cath done about 10 years from now which she reported was clinically clean without any significant coronary artery disease at that time. No intervention has been done between then and now. Allergies No Known Allergies Allergy (Verified 12/02/22 01:39) Home Medications: Levothyroxine [Synthroid] 125 mcg PO DAILY 12/01/22 Pravastatin [Pravachol*] 80 mg 12/01/22 - Family History Mother -: Heart disease Review of Systems General: Unremarkable Eyes: Unremarkable ENT: Unremarkable Respiratory: Unremarkable Cardiovascular: Chest Pain Gastrointestinal: Unremarkable Genitourinary: Unremarkable Musculoskeletal: Unremarkable Neurological: Other (dizziness.) Physical Examination - Physical Exam General: Alert, Oriented x3 HEENT: Atraumatic, Normocephalic Neck: Supple Respiratory: Normal air movement Cardiovascular: Regular rate/rhythm, Normal S1 S2 Gastrointestinal: Soft and benign Musculoskeletal: No swelling Neurological: Normal speech, Normal strength at 5/5 x4 extr - Studies Laboratory Data (last 24 hrs) 12/01/22 12/01/22 12/01/22 17:02 17:02 17:02 WBC 7.60 Hgb 12.6 Hct 37.5 Plt Count 302 PT 11.6 INR 1.05 Sodium Potassium BUN Creatinine Glucose Magnesium Total Bilirubin AST ALT Alkaline Phosphatase Triglycerides 130 Cholesterol 150 HDL Cholesterol 50 Cholesterol/HDL Ratio 3.00 Lipase 12/01/22 17:02 WBC Hgb Hct Plt Count PT INR Sodium 139 Potassium 3.5 BUN 13 Creatinine 0.88 Glucose 96 Magnesium 2.1 Total Bilirubin 0.3 AST 14 L ALT 22 Alkaline Phosphatase 66 Triglycerides Cholesterol HDL Cholesterol Cholesterol/HDL Ratio Lipase 66 Assessment and Plan - Plan Chest pain: Significantly concerning for ACS. She has a strong family history. We will trend troponin, start aspirin therapy and obtain lipid panel. Also obtain echocardiogram to assess cardiac function. We will base further work-up on lab findings and echocardiogram findings. History of hypothyroidism: Continue levothyroxine Hyperlipidemia: We will continue patient on outpatient statin therapy and obtain lipid panel Dizziness: Vitals are stable so far. We will obtain orthostatic vitals to further evalua te. Hypertension: We will monitor vital signs per unit protocol and continue antihypertensive medications Prophylaxis: Lovenox for DVT prophylaxis CODE STATUS: Full code Disposition: Work-up of chest pain and discharge when she is deemed clinically stable Discharge Plan: Home - Advance Directives Does patient have a Living Will: No Does patient have a Durable POA for Healthcare: No
[2022-12-02] MEDS ORDERED: FAMOTIDINE 20 MG TAB PO ONE (08:59)
[2022-12-02] MEDS ORDERED: ENOXAPARIN 40 MG/0.4 ML SQ SCH (09:00)
[2022-12-02] MEDS ORDERED: ASPIRIN 81 MG CHEWABLE TABLET PO SCH (09:00)
--- NOTE | 2022-12-02 11:56 | EKG ---
Test Date: 2022-12-01 Test Time: 16:54:50 Immigration Paralegal: KEMAR MEASUREMENT RESULTS: Intervals: Rate: 76 CT: 140 QRSD: 80 QT: 376 QTc: 423 [place]: P: 36 CT: 140 QRS: -10 T: -33 INTERPRETIVE STATEMENTS: Normal sinus rhythm ST & T wave abnormality, consider inferior ischemia Abnormal ECG Compared to ECG 09/12/2007 11:02:38 ST (T wave) deviation now present Possible ischemia now present Electronically Signed On 12-02-22 11:55:26 CDT by Jonh Mackey
--- NOTE | 2022-12-02 14:05 | P.DS ---
Admission Date: 12/01/22 Discharge Date: 12/02/22 Disposition: ROUTINE DISCHARGE Discharge Condition: FAIR Reason for Admission: Chest pain Consultations: Cardiology Procedures: Chest x-ray 12/01/2022 FINDINGS: The lungs are clear. No pneumothorax or effusion. The cardiomediastinal contours are unremarkable. IMPRESSION: No acute cardiopulmonary process. CT head 12/01/2022 FINDINGS: No intracranial hemorrhage, mass, or edema. Midline structures are unremarkable. Normal ventricular caliber for age. Howard-white matter differentiation is preserved, without evidence of acute infarct. No abnormal extra-axial fluid collections. Mastoid air cells and visualized portions of the paranasal sinuses are clear. No acute bony findings. IMPRESSION: No evidence of an acute intracranial process. Brief History of Present Illness: 62-year-old female patient with a medical history significant for hypertension, hyperlipidemia, strong family history of coronary artery disease in both parents and sibling who was evaluated for episode of chest pain radiating down the left arm that started on the day of admission. 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 Dizziness persisted and she began to have some mild chest discomfort in the epigastric/retrosternal area. Subsequently she felt it radiating down the left arm with some numbness and uneasy feeling. No issues with nausea, vomiting, headache. No falls. No syncope. Because her symptoms persisted she decided to come to the emergency room for evaluation. In the ED after clinical review patient was deemed to be in need of ACS rule out. She did have left heart cath done about 10 years from now which she reported was clinically clean without any significant coronary artery disease at that time. No intervention has been done between then and now. Hospital Course: You came to the emergency department with a chief complaint of chest pain, di zziness, left arm paresthesias. Your EKG did not show that you are actively having a heart attack, chest x-ray did not show any concerning findings, cardiac enzymes were tested throughout the evening/morning and all returned within normal limits. Chest pain has not persisted. You were seen and evaluated by the senior manager mergers & acquisitions who recommends that you have an outpatient stress test. We recommend you also take a daily aspirin in addition to your cholesterol medication. Marking Machine Tender information for follow-up appointment is included in your discharge packet. Please return to the emergency department if you experience any new or worsening symptoms. Vital Signs/Physical Exam: Temp Pulse Resp BP Pulse Ox 98.8 F 56 17 122/65 96 12/02/22 12:00 12/02/22 12:00 12/02/22 12:00 12/02/22 12:00 12/02/22 12:00 General: Alert, In no apparent distress, Oriented x3 HEENT: Atraumatic, PERRLA, EOMI Neck: Supple, JVD not distended Respiratory: Clear to auscultation bilaterally, Normal air movement Cardiovascular: Regular rate/rhythm, Normal S1 S2 Gastrointestinal: Normal bowel sounds, No tenderness Musculoskeletal: No tenderness Integumentary: No rashes Neurological: Normal speech, Normal tone, Normal affect Lymphatics: No axilla or inguinal lymphadenopathy Laboratory Data at Discharge: WBC 7.60 thou/uL (4.3-10.9) 12/01/22 17:02 Hgb 12.6 g/dL (12.0-15.0) 12/01/22 17:02 Hct 37.5 % (36.0-45.0) 12/01/22 17:02 Plt Count 302 thou/uL (152-406) 12/01/22 17:02 PT 11.6 SECONDS (9.5-12.5) 12/01/22 17:02 INR 1.05 12/01/22 17:02 Sodium 139 mEq/L (136-145) 12/01/22 17:02 Potassium 3.5 mEq/L (3.5-5.1) 12/01/22 17:02 BUN 13 mg/dL (7-18) 12/01/22 17:02 Creatinine 0.88 mg/dL (0.55-1.02) 12/01/22 17:02 Glucose 96 mg/dL (74-106) 12/01/22 17:02 Magnesium 2.1 mg/dL (1.6-2.4) 12/01/22 17:02 Total Bilirubin 0.3 mg/dL (0.2-1.0) 12/01/22 17:02 AST 14 U/L (15-37) L 12/01/22 17:02 ALT 22 U/L (13-56) 12/01/22 17:02 Alkaline Phosphatase 66 U/L (45-117) 12/01/22 17:02 Triglycerides 73 mg/dL (<150) 12/02/22 00:28 Cholesterol 132 mg/dL (<200) 12/02/22 00:28 HDL Cholesterol 48 mg/dL (40-60) 12/02/22 00:28 Cholesterol/HDL Ratio 2.75 12/02/22 00:28 Lipase 66 U/L (13-75) 12/01/22 17:02 Home Medications: Levothyroxine [Synthroid] 125 mcg PO DAILY 12/01/22 Pravastatin [Pravachol*] 80 mg 12/01/22 Physician Discharge Instructions: You came to the emergency department with a chief complaint of chest pain, dizziness, left arm paresthesias. Your EKG did not show that you are actively having a heart attack, chest x-ray did not show any concerning findings, cardiac enzymes were tested throughout the evening/morning and all returned within normal limits. Chest pain has not persisted. You were seen and evaluated by the senior manager mergers & acquisitions who recommends that you have an outpatient stress test. We recommend you also take a daily aspirin in addition to your cholesterol medication. Marking Machine Tender information for follow-up appointment is included in your discharge packet. Please return to the emergency department if you e xperience any new or worsening symptoms. Diet: AHA Activity: Ad harish Followup: Jonh Mackey MD [ACTIVE - CAN ADMIT] - 1-2 Weeks Time spent managing pt's care (in minutes): 20
--- NOTE | 2022-12-02 14:26 | ECHO ---
HEIGHT: ft in WEIGHT: lb oz DATE OF STUDY: 12/02/[address]: Sukhi Fooet MD 2-DIMENSIONAL: YES M.MODE: YES DOPPLER: YES COLOR FLOW: YES TDS: PORTABLE: YES DEFINITY: BUBBLE STUDY: DIAGNOSIS: EVALUATION OF CHEST PAIN CARDIAC HISTORY: CATHERIZATION: YES SURGERY: NO PROSTHETIC VALVE: NO PACEMAKER: NO MEASUREMENTS (cm) DIASTOLIC (NORMALS) SYSTOLIC (NORMALS) IVSd 0.9 (0.6-1.2) LA Diam 2.7 (1.9-4.0) LVEF 69% LVIDd 4.1 (3.5-5.7) LVIDs 2.5 (2.0-3.5) %FS 38% LVPWd 0.9 (0.6-1.2) Ao Diam 2.5 (2.0-3.7) 2 DIMENSIONAL ASSESSMENT: RIGHT ATRIUM: NORMAL LEFT ATRIUM: NORMAL RIGHT VENTRICLE: NORMAL LEFT VENTRICLE: NORMAL TRICUSPID VALVE: NORMAL MITRAL VALVE: NORMAL PULMONIC VALVE: NORMAL AORTIC VALVE: NORMAL PERICARDIAL EFFUSION: NONE AORTIC ROOT: NORMAL LEFT VENTRICULAR WALL MOTION: NORMAL DOPPLER/COLOR FLOW: NORMAL COMMENTS: 1. NORMAL LEFT VENTRICULAR EJECTION FRACTION 55-60% 2. NORMAL WALL MOTION TECHNOLOGIST: MORA RUIZ
[2022-12-03 15:24] VITALS: BP 122/65; TEMP 98.8; O2SAT 96; BMI 29.7
== END 2022-12-02 14:26 | disposition home or self-care (01) ==
LOC: ER 16:43 → 4TH 20:22
PROVIDERS: ADMIT Internal Medicine Nephrology; ATTEND Hospitalist
DX: R07.9 Chest pain, unspecified (principal); R20.2 Paresthesia of skin; I10 Essential (primary) hypertension; E78.5 Hyperlipidemia, unspecified; E03.9 Hypothyroidism, unspecified; Z82.49 Family history of ischemic heart disease and other diseases of the circulatory system; Z79.890 Hormone replacement therapy
CPT/HCPCS: 93005; 93306; 85025; 80048; 36415; 83735; 85610; 80061 ×2; 80076; 81003; 84484 ×3; 83690; 83880; 70450; 71045; 96375; 96372; 96374; 99285; J1650; G0378